=== PATIENT | male | born 1975 | race Caucasian/White ===

== ENCOUNTER → 2016-12-12 | Outpatient (CLI) | payer BC | END | disposition home or self-care (01) | LOC: CDC 08:12 | DX: R94.31 Abnormal electrocardiogram [ECG] [EKG] (principal); E66.01 Morbid (severe) obesity due to excess calories | CPT/HCPCS: 93000 ==

== ENCOUNTER 2017-03-09 21:36 | Inpatient (IN) | payer BC ==
[~2017-03-09] VITALS: Ht 177.8 cm; Wt 152.7 kg
[~2017-03-09 21:36] MED LIST: ONE DAILY FOR1 EACH PO; PRINZIDE 10-121 EACH PO; TYLENOL W/COD1 COMB1 PO
[2017-03-10] MEDS ORDERED: LEXAPRO10 MG PO (12:59)
[2017-03-10 13:00] VITALS: BP 130/62
[2017-03-10 17:45] VITALS: BP 156/80
[2017-03-11 00:44] VITALS: BP 154/86
[2017-03-11 04:13] VITALS: BP 156/82
[2017-03-11 07:13] VITALS: BP 171/87
[2017-03-11 08:03] LABS: HEMATOCRIT 40.4 % (38.0-50.0); MCH 28.6 PG (29.0-34.0); MCHC 33.9 G/DL (30.0-36.0); MCV 84.3 FL (86-99); MEAN PLAT.VOLUME 9.3 uM^3 (9.0-12.4); PLATELET COUNT 383 K/uL (156-360); RBC DIS.WIDTH-CV 14.6 % (11.8-14.6); RBC DIS.WIDTH-SD 44.6 % (39-53); RED BLOOD COUNT 4.79 M/uL (4.00-5.50); WHITE BLOOD COUNT 8.8 K/uL (4.1-10.2)
[2017-03-11 08:32] LABS: ANION GAP 15 MEQ/L (2-14); CHLORIDE 101 MEQ/L (99-109); GFR ESTIMATE (CALCULATED) > 59 mL/min/; GLUCOSE 119 mg/dL (70-99); MAGNESIUM 1.7 mg/dl (1.3-2.7); POTASSIUM 4.5 MEQ/L (3.7-5.4); SAMPLE HEMOLYSIS CHECK 0; SAMPLE ICTERIC CHECK 0; SAMPLE LIPEMIA CHECK 0; SODIUM 138 MEQ/L (136-147); UREA NITROGEN (BUN) 15 mg/dL (9-23)
[2017-03-11] MEDS ORDERED: HYDROCODON-ACE1 EAC7 PO (10:31)
[2017-03-11 11:10] VITALS: BP 160/62
== END 2017-03-11 14:14 | disposition home or self-care (01) | DRG 621 ==
LOC: ENRESERV 21:36 → 2SOUTH 03-10 07:44 → 2EAST 03-10 12:15 → 2SOUTH 03-10 12:15 → ENRESERV 03-10 16:49 → 2EAST 03-10 17:54
PROVIDERS: Physician Assistant
PROC: 0DB64Z3 Excision of Stomach, Percutaneous Endoscopic Approach, Vertical (ICD-10-PCS; principal; 2017-03-10)
DX: E66.01 Morbid (severe) obesity due to excess calories (principal); Z68.43 Body mass index [BMI] 50.0-59.9, adult; I10 Essential (primary) hypertension; E78.5 Hyperlipidemia, unspecified; J45.909 Unspecified asthma, uncomplicated; G47.30 Sleep apnea, unspecified; F41.9 Anxiety disorder, unspecified; F32.9 Major depressive disorder, single episode, unspecified; K44.9 Diaphragmatic hernia without obstruction or gangrene
CPT/HCPCS: 80048; 83735; 84100; 85027; 94799; C9113; J0131; J0330; J1100; J1170; J1580; J1644; J1650; J1885; J2250; J2405; J2710; J3010; J3480; J7050; J7120; S0020